=== PATIENT | female | born 1990 | race Caucasian/White ===

== ENCOUNTER 2020-09-09 16:29 | Observation (INO) | payer MEDICAID ==
[~2020-09-09] VITALS: Ht 157.5 cm; Wt 71.7 kg
[2020-09-09] MEDS ORDERED: CALC-1042 MT (17:49)
[2020-09-09] MEDS ORDERED: FERR236T3 MT (17:49)
[2020-09-09] MEDS ORDERED: PNV1TABL76 PO (17:49)
== END 2020-09-09 20:00 | disposition home or self-care (01) ==
LOC: 8 EST LDRP 16:29
PROVIDERS: ADMIT Obstetrics & Gynecology; ATTEND Obstetrics & Gynecology
DX: O62.9 Abnormality of forces of labor, unspecified (principal); O99.891 Other specified diseases and conditions complicating pregnancy; M54.5 Low back pain; Z3A.33 33 weeks gestation of pregnancy
CPT/HCPCS: 59025; 76815; 76818; 82731; G0378; 99281

== ENCOUNTER 2020-10-28 09:06 | Inpatient (IN) | payer MEDICAID ==
[~2020-10-28] VITALS: Ht 157.5 cm; Wt 74.4 kg
[~2020-10-28 09:06] MED LIST: CALC-1042 MT; FERR236T3 MT; PNV1TABL76 PO
[2020-10-28] MEDS ORDERED: MISOPROSTOL 100MCG TABLET VG SCH (10:15)
[2020-10-28] MEDS ORDERED: DEXT 5%/LACTATED RINGERS 1,000 ML IV PRN (10:15)
[2020-10-28] MEDS ORDERED: LIDOCAINE HCL 1% 20ML VIAL (Pyxis) INJ INFIL SCH (10:15)
[2020-10-28] MEDS ORDERED: NALOXONE HCL 0.4 MG/ML 1ML VIAL IM PRN (10:15)
[2020-10-28] MEDS ORDERED: CARBOPROST TROMETHAMINE 250 MCG/ML AMPUL IM PRN (10:15)
[2020-10-28] MEDS ORDERED: METHYLERGONOVINE MALEATE 0.2 MG/ML IM PRN ×2 (10:15→23:30)
[2020-10-28 11:34] LABS: BASOPHILS % 0.3 % (0.0-2.0); CLARITY URINE CLEAR (CLEAR); COLOR URINE YELLOW (YELLOW); EOSINOPHILS % 0.7 % (0.0-5.0); HEMATOCRIT. 35.6 % (36.0-48.0); HEMOGLOBIN. 11.9 g/dL (12.0-16.0); KETONES URINE NEGATIVE (NEGATIVE); LEUKOCYTE ESTERASE URINE NEGATIVE (NEGATIVE); LYMPHOCYTES % 24.4 % (20.0-50.0); MEAN CORPUSCULAR HEMOGLOBIN 30.3 pg (28.0-32.0); MEAN CORPUSCULAR VOLUME 90.4 fL (81.0-99.0); MEAN PLATELET VOLUME 12.1 fl (7.4-10.4); MONOCYTES % 7.1 % (2.0-8.0); NEUTROPHILS % 67.5 % (40.0-76.0); NITRITE URINE NEGATIVE (NEGATIVE); OCCULT BLOOD URINE NEGATIVE (NEGATIVE); PLATELET 107 x1000/uL (130-400); PROTEIN URINE NEGATIVE (NEGATIVE); RED BLOOD CELL COUNT 3.94 mill/uL (4.2-5.4); RED CELL DISTRIBUTION WIDTH 14.8 % (11.6-14.6); SPECIFIC GRAVITY URINE 1.004 (1.005-1.030); UROBILINOGEN URINE 0.2 E.U./dL (0.2-1.0)
[2020-10-28] MEDS: DEXT 5%/LR + PITOCIN 20UNITS/L 1,000 ML IV PRN ×3 (11:39→23:04)
[2020-10-28] MEDS: LACTATED RINGERS 1,000 ML IV SCH ×3 (11:39→21:45)
[2020-10-28 11:44] LABS: INR 0.9; PARTIAL THROMBOPLASTIN TIME 27.9 sec (23.4-31.0); PROTHROMBIN TIME 9.8 sec (9.6-11.0)
[2020-10-28 11:53] LABS: *AMPHETAMINES SCREEN URINE NEGATIVE (NEGATIVE); *BARBITURATES SCREEN URINE NEGATIVE (NEGATIVE); *BENZODIAZEPINES SCREEN URINE NEGATIVE (NEGATIVE); *COCAINE SCREEN URINE NEGATIVE (NEGATIVE)
[2020-10-28 11:54] LABS: CANNABINOID URINE SCREEN NEGATIVE (NEGATIVE); METHADONE URINE SCREEN NEGATIVE (NEGATIVE); OPIATES URINE SCREEN NEGATIVE (NEGATIVE); PHENCYCLIDINE URINE SCREEN NEGATIVE (NEGATIVE)
[2020-10-28 13:22] LABS: HEPATITIS B SURFACE ANTIGEN NEGATIVE
[2020-10-28] MEDS: BUTORPHANOL TARTRATE 2 MG/ML VIAL IV PRN ×2 (19:28→21:30)
[2020-10-28] MEDS ORDERED: ROPIVACAINE HCL/PF EPIDURAL 200 ML EPI SCH (21:45)
[2020-10-28] MEDS ORDERED: RHO(D) IMMUNE GLOBULIN 300 MCG/SYR IM PRN (23:30)
[2020-10-28] MEDS ORDERED: IBUPROFEN 800MG TABLET PO PRN (23:30)
[2020-10-28] MEDS ORDERED: IBUPROFEN 400MG TABLET PO PRN (23:30)
[2020-10-28] MEDS ORDERED: DIPHENHYDRAMINE 25MG CAPSULE PO PRN (23:30)
[2020-10-28] MEDS ORDERED: DEXT 5%/LR + PITOCIN 20UNITS/L 1,000 ML IV SCH (23:30)
[2020-10-29 00:35] VITALS: BP 109/64
[2020-10-29 02:00] VITALS: BP 105/66
[2020-10-29 08:00] VITALS: BP 114/61
[2020-10-29 08:06] LABS: BASOPHILS % 0.3 % (0.0-2.0); EOSINOPHILS % 0.5 % (0.0-5.0); HEMATOCRIT. 30.1 % (36.0-48.0); HEMOGLOBIN. 10.1 g/dL (12.0-16.0); LYMPHOCYTES % 16.3 % (20.0-50.0); MEAN CORPUSCULAR HEMOGLOBIN 30.3 pg (28.0-32.0); MEAN CORPUSCULAR VOLUME 90.3 fL (81.0-99.0); MEAN PLATELET VOLUME 11.4 fl (7.4-10.4); MONOCYTES % 8.5 % (2.0-8.0); NEUTROPHILS % 74.4 % (40.0-76.0); PLATELET 101 x1000/uL (130-400); RED BLOOD CELL COUNT 3.33 mill/uL (4.2-5.4); RED CELL DISTRIBUTION WIDTH 14.5 % (11.6-14.6)
[2020-10-29] MEDS ORDERED: PRENATAL VIT/FE FUMARATE/FA TABLET PO SCH (09:00)
[2020-10-29 15:56] VITALS: BP 102/48
[2020-10-29 20:00] VITALS: BP 94/52
[2020-10-29] MEDS ORDERED: LANOLIN OINT 7GM TUBE TOP PRN (21:30)
[2020-10-29] MEDS ORDERED: DEXT 5%/LACTATED RINGERS 1,000 ML IV SCH (21:30)
[2020-10-29] MEDS ORDERED: BENZOCAINE/LANOLIN/ALOE VERA SPRAY TOP PRN (21:30)
[2020-10-30 04:30] VITALS: BP 96/50
[2020-10-30 07:27] LABS: BASOPHILS % 0.6 % (0.0-2.0); EOSINOPHILS % 3.1 % (0.0-5.0); HEMATOCRIT. 28.8 % (36.0-48.0); HEMOGLOBIN. 9.7 g/dL (12.0-16.0); LYMPHOCYTES % 30.1 % (20.0-50.0); MEAN CORPUSCULAR HEMOGLOBIN 30.8 pg (28.0-32.0); MEAN CORPUSCULAR VOLUME 91.1 fL (81.0-99.0); MEAN PLATELET VOLUME 11.6 fl (7.4-10.4); MONOCYTES % 7.3 % (2.0-8.0); NEUTROPHILS % 58.9 % (40.0-76.0); PLATELET 108 x1000/uL (130-400); RED BLOOD CELL COUNT 3.16 mill/uL (4.2-5.4); RED CELL DISTRIBUTION WIDTH 14.7 % (11.6-14.6)
[2020-10-30 07:30] VITALS: BP 104/66
== END 2020-10-30 18:16 | disposition home or self-care (01) | DRG 560 ==
LOC: 8 EST LDRP 09:06 → OBSVTOIN 09:06 → 8EST 10-29 00:59
PROVIDERS: ADMIT Obstetrics & Gynecology; ATTEND Obstetrics & Gynecology
PROC: 10E0XZZ Delivery of Products of Conception, External Approach (ICD-10-PCS; principal; 2020-10-28)
PROC: 0HQ9XZZ Repair Perineum Skin, External Approach (ICD-10-PCS; 2020-10-28)
DX: O48.0 Post-term pregnancy (principal); O70.0 First degree perineal laceration during delivery; Z37.0 Single live birth; Z3A.40 40 weeks gestation of pregnancy; Z20.822 Contact with and (suspected) exposure to COVID-19
CPT/HCPCS: 36415; 76805; 76818; 80305; 81003; 85025; 86592; 86703; 86762; 86850; 86900; 87340; 87426; 99281; G0378; J0595; J2590; J3490; J7120; J7121; A4315